=== PATIENT | female | born 1995 ===

== ENCOUNTER 2019-05-17 23:22 | Emergency (ER) | payer OTHER ==
--- NOTE | 2019-05-18 02:26 | XRay Report ---
Right forearm 4 views INDICATION: Right forearm pain IMPRESSION: Dislocation of the right elbow. Possible tiny fracture involving the coronoid process. Signer Name: Javier Leslie MD Signed: 05/18/2019 2:22 AM Workstation Name: [id number]
--- NOTE | 2019-05-18 02:26 | XRay Report ---
Right shoulder 2 views INDICATION: Right shoulder pain IMPRESSION: No fracture or subluxation of the right shoulder. Signer Name: Javier Leslie MD Signed: 05/18/2019 2:22 AM Workstation Name: [email or web address]
[2019-05-18] MEDS ORDERED: NACL 0.9% 1000 ML 1,000 ML IV ONE (02:59)
[2019-05-18] MEDS ORDERED: KETALAR IV ONE (02:59)
[2019-05-18] MEDS ORDERED: DIPRIVAN 10 MG/ML IV ONE (02:59)
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
[2019-05-18 04:08] VITALS: BP 117/56
--- NOTE | 2019-05-18 04:13 | XRay Report ---
Right elbow 3 views INDICATION: Right elbow pain IMPRESSION: Reduction of the right elbow dislocation. Signer Name: Javier Leslie MD Signed: 05/18/2019 4:09 AM Workstation Name: [email or web address]
== END 2019-05-18 05:45 | disposition home or self-care (01) ==
LOC: EDBD → ED 23:22
DX: S53.104A Unspecified dislocation of right ulnohumeral joint, initial encounter (principal); F17.200 Nicotine dependence, unspecified, uncomplicated; F12.10 Cannabis abuse, uncomplicated; X58.XXXA Exposure to other specified factors, initial encounter; Y93.89 Activity, other specified; Y92.89 Other specified places as the place of occurrence of the external cause; Y99.8 Other external cause status
CPT/HCPCS: 24600; 73030; 73070; 73090; 99284; J2704; J7030; 96365; 96375

== ENCOUNTER 2019-05-19 20:20 | Emergency (ER) | payer OTHER ==
[2019-05-19 20:41] VITALS: BP 101/55
--- NOTE | 2019-05-19 20:41 | Event Note ---
ED Screening Note Date of service: 05/19/19 Time: 20:39 ED Screening Note: This is a 23 y.o. F. that presents to the ER with a splint and sling to RUE. Patient reports swelling and tightness to right wrist and hands. This initial assessment/diagnostic orders/clinical plan/treatment(s) is/are subject to change based on patients health status, clinical progression and re- assessment by fellow clinical providers in the ED. Further treatment and workup at subsequent clinical providers discretion. Patient/guardian urged not to elope from the ED as their condition may be serious if not clinically assessed and managed. Initial orders include: ACC for further evaluation
--- NOTE | 2019-05-19 22:22 | Emergency Department Report ---
Chief Complaint: Extremity Injury, Upper Stated Complaint: RIGHT ARM SWELLING Time Seen by Provider: 05/19/19 20:39 - HPI History of Present Illness: [place] is a 23-year-old female who was recently treated in our emergency Department two days ago for elbow dislocation. The reductions took palce here in emergency department. She has a posterior splint in place. She had mild hand swelling. Our manufacturing test technician loosened the [place] wrap surrounding splint prior to my evaluation. She feels much more comfortable. No indication of neurovascular compromise. No indication of cellulitis or compartment syndrome. I Recommended elevation. Medical screening exam performed and completed. No evidence of acute emergent condition. She will follow-up with orthopedic surgeon this week. - Exam Vital Signs: Vital Signs 05/19/19 20:39 Temperature 98.3 F Pulse Rate 88 Respiratory 18 Rate Blood Pressure 101/55 O2 Sat by Pulse 100 Oximetry MSE screening note: Focused history and physical exam performed. Due to findings the following was ordered: ED Disposition for MSE Clinical Impression: Dislocation of right elbow, Cast in place on extremity Disposition: MED SCREENING EXAM-LEFT Is pt being admited?: No Does the pt Need Aspirin: No Condition: Stable Instructions: Splint Care (ED) Referrals: MATTHEW DE SOUZA MD [Staff Physician] - 2-3 Days
== END 2019-05-19 22:33 | disposition left against medical advice (07) ==
LOC: ED 20:20
DX: S53.104A Unspecified dislocation of right ulnohumeral joint, initial encounter (principal); X58.XXXA Exposure to other specified factors, initial encounter; Y93.89 Activity, other specified; Y92.89 Other specified places as the place of occurrence of the external cause; Y99.8 Other external cause status
CPT/HCPCS: 99282